=== PATIENT | male | born 1975 | race Caucasian/White ===

== ENCOUNTER 2017-08-24 19:49 | Emergency (ER) | payer OTHER ==
[~2017-08-24] VITALS: Ht 182.9 cm; Wt 123.0 kg
[2017-08-24 20:23] LABS: APPEARANCE CLEAR ((CLEAR)); BILIRUBIN NEGATIVE; BLOOD NEGATIVE; COLOR YELLOW ((YELLOW)); GLUCOSE (STRIP) NEGATIVE; KETONES 20; LEUKOCYTES NEGATIVE; NITRITE NEGATIVE; PROTEIN (STRIP) 30; SPECIFIC GRAVITY 1.026 (1.000-1.030); UCUL ADDED? NO; UROBILINOGEN 0.2 MG/DL (0.2-1.0)
[2017-08-24 20:25] LABS: HEMATOCRIT 44.5 % (38.0-50.0); HEMOGLOBIN 15.9 G/DL (12.5-16.6); MCH 30.3 PG (29.0-34.0); MCHC 35.7 G/DL (30.0-36.0); MCV 84.8 FL (86-99); PLATELET COUNT 182 K/uL (156-360); RBC DIS.WIDTH-SD 36.5 % (39-53); RED BLOOD COUNT 5.25 M/uL (4.00-5.50); WHITE BLOOD COUNT 12.3 K/uL (4.1-10.2)
[2017-08-24 20:37] LABS: ALBUMIN 4.6 g/dL (3.2-4.8); CHLORIDE 105 mEq/L (99-109); POTASSIUM 3.8 mEq/L (3.7-5.4); SODIUM 138 mEq/L (136-147)
[2017-08-24 20:39] LABS: GLUCOSE 103 mg/dL (70-99)
[2017-08-24 20:41] LABS: TOTAL BILIRUBIN 1.5 mg/dL (0.0-1.0)
[2017-08-24 20:43] LABS: ALKALINE PHOSPHATASE 81 IU/L (3-129); CREATININE 0.9 mg/dL (0.6-1.3); GFR ESTIMATE (CALCULATED) > 59 mL/min/ (58.99-99999)
[2017-08-24 20:44] LABS: UREA NITROGEN (BUN) 12 mg/dL (9-23)
[2017-08-24 20:45] LABS: AST (GOT) 25 IU/L (2-34)
[2017-08-24 20:46] LABS: ALT (GPT) 54 IU/L (3-49)
[2017-08-25] MEDS ORDERED: FLAGYL500 MG PO (00:02)
[2017-08-25] MEDS ORDERED: CIPRO500 MG PO (00:02)
[2017-08-25] MEDS ORDERED: ZOFRAN ODT4 MG PO (00:03)
[2017-08-25] MEDS ORDERED: PERCOCET 5/31 TABLET PO (00:03)
[2017-08-25 00:30] VITALS: BP 131/92
== END 2017-08-25 00:30 | disposition home or self-care (01) ==
LOC: EME 19:49
DX: K57.32 Diverticulitis of large intestine without perforation or abscess without bleeding (principal); I10 Essential (primary) hypertension; Z87.891 Personal history of nicotine dependence; Z98.890 Other specified postprocedural states
CPT/HCPCS: 74177; 80053; 81003; 85027; 99281; 99284